=== PATIENT | male | born 1965 | race African-American/Black ===

== ENCOUNTER 2016-12-21 11:08 | Inpatient (IN) | payer OTHER ==
[~2016-12-21] VITALS: Ht 165.1 cm; Wt 76.3 kg
[~2016-12-21 11:08] MED LIST: Augmentin PO; FLEXERIL10 MG PO; GABAPENTIN400 MG PO; HYDROCODON-ACE1 EAC7 PO; METHADONE10 MG PO; MOBIC15 MG PO; NAPROXEN500 MG PO; OXYCODONE HCL20 M1 PO; PREDNISONE20 MG PO; VICODIN ES 71 TABLET PO; VOLTAREN75 MG PO; predniSONE PO
[2016-12-21 13:23] LABS: HEMATOCRIT 46.1 % (38.0-50.0); MCHC 33.6 G/DL (30.0-36.0); MCV 95.1 FL (86-99); RBC DIS.WIDTH-CV 11.2 % (11.8-14.6); RBC DIS.WIDTH-SD 39.6 % (39-53); RED BLOOD COUNT 4.85 M/uL (4.00-5.50)
[2016-12-21 13:34] LABS: CHLORIDE 102 mEq/L (99-109); POTASSIUM 4.5 mEq/L (3.7-5.4); SODIUM 138 mEq/L (136-147)
[2016-12-21 13:35] LABS: GLUCOSE 94 mg/dL (70-99)
[2016-12-21 13:37] LABS: ANION GAP 11 MEQ/L (2-14)
[2016-12-21 13:39] LABS: GFR ESTIMATE (CALCULATED) > 59 mL/min/
[2016-12-21 13:40] LABS: UREA NITROGEN (BUN) 7 mg/dL (9-23)
[2016-12-21] MEDS ORDERED: AUGMENTIN875 MG PO (13:57)
[2016-12-21] MEDS ORDERED: BENZONATATE100 MG PO (13:58)
[2016-12-21 14:14] LABS: PLATELET COUNT 275 K/uL (156-360)
[2016-12-21 14:15] LABS: TROP-I INTERPRETATION NEGATIVE; TROPONIN-I < 0.01 ng/mL (0.0-0.30)
[2016-12-21] MEDS ORDERED: PREDNISONE50 MG PO (15:05)
[2016-12-21 17:01] LABS: D-DIMER ELISA < 150.00 ng/mLDDU (<230)
[2016-12-21 18:22] VITALS: BP 142/70
[2016-12-21 19:39] LABS: TROP-I INTERPRETATION NEGATIVE; TROPONIN-I < 0.01 ng/mL (0.0-0.30)
[2016-12-21 22:00] LABS: INFLUENZA A VIRAL ANTIGEN NEGATIVE; INFLUENZA B VIRAL ANTIGEN NEGATIVE
[2016-12-22 00:09] VITALS: BP 126/71
[2016-12-22 01:31] LABS: TROP-I INTERPRETATION NEGATIVE; TROPONIN-I < 0.01 ng/mL (0.0-0.30)
[2016-12-22 04:14] VITALS: BP 103/51
[2016-12-22 07:08] LABS: HEMATOCRIT 40.7 % (38.0-50.0); MCH 32.9 PG (29.0-34.0); MCHC 34.6 G/DL (30.0-36.0); MCV 95.1 FL (86-99); RBC DIS.WIDTH-CV 11.3 % (11.8-14.6); RBC DIS.WIDTH-SD 39.4 % (39-53); RED BLOOD COUNT 4.28 M/uL (4.00-5.50)
[2016-12-22 07:23] LABS: ALKALINE PHOSPHATASE 79 IU/L (3-129); ANION GAP 11 MEQ/L (2-14); CHLORIDE 101 MEQ/L (99-109); GFR ESTIMATE (CALCULATED) > 59 mL/min/; SAMPLE HEMOLYSIS CHECK 0; SAMPLE ICTERIC CHECK 0; SAMPLE LIPEMIA CHECK 0; SODIUM 137 MEQ/L (136-147); TOTAL BILIRUBIN 0.6 MG/DL (0.0-1.0); UREA NITROGEN (BUN) 9 mg/dL (9-23)
[2016-12-22 07:24] LABS: GLUCOSE 186 mg/dL (70-99)
[2016-12-22 07:40] LABS: MEAN PLAT.VOLUME 10.6 uM^3 (9.0-12.4); PLAT.SUFFICIENCY ADEQUATE; PLATELET COUNT 237 K/uL (156-360)
[2016-12-22 07:43] VITALS: BP 145/60
[2016-12-22 12:04] VITALS: BP 145/70
[2016-12-22] MEDS ORDERED: VENTOLIN HFA18 GM IH (12:43)
[2016-12-22 16:11] VITALS: BP 123/62
[2016-12-22 19:26] VITALS: BP 150/61
[2016-12-23] VITALS: BP 126/58
[2016-12-23 04:04] VITALS: BP 107/52
[2016-12-23 06:29] LABS: HEMATOCRIT 41.1 % (38.0-50.0); MCH 31.8 PG (29.0-34.0); MCHC 33.3 G/DL (30.0-36.0); MCV 95.4 FL (86-99); MEAN PLAT.VOLUME 11.1 uM^3 (9.0-12.4); PLATELET COUNT 242 K/uL (156-360); RBC DIS.WIDTH-CV 11.4 % (11.8-14.6); RBC DIS.WIDTH-SD 40.3 % (39-53); RED BLOOD COUNT 4.31 M/uL (4.00-5.50); WHITE BLOOD COUNT 24.5 K/uL (4.1-10.2)
[2016-12-23 07:06] LABS: ANION GAP 9 MEQ/L (2-14); CHLORIDE 100 MEQ/L (99-109); GFR ESTIMATE (CALCULATED) > 59 mL/min/; MAGNESIUM 2.3 mg/dl (1.3-2.7); POTASSIUM 4.4 MEQ/L (3.7-5.4); SAMPLE HEMOLYSIS CHECK 0; SAMPLE ICTERIC CHECK 0; SAMPLE LIPEMIA CHECK 0; SODIUM 139 MEQ/L (136-147); UREA NITROGEN (BUN) 15 mg/dL (9-23)
[2016-12-23 07:08] LABS: GLUCOSE 98 mg/dL (70-99)
[2016-12-23 07:24] VITALS: BP 121/61
[2016-12-23 07:25] LABS: EOSINOPHIL (%) 0.2 % (0-5); EOSINOPHIL COUNT 0.1 K/uL (0-0.3); IMMATURE GRANULOCYTE (%) 0.8 % (0.0-0.7); IMMATURE GRANULOCYTE COUNT 0.2 K/uL; INSTRUMENT ABS NEUTROPHIL CT 17.9 K/uL; MONOCYTE (%) 5.5 % (3-12); MONOCYTE COUNT 1.4 K/uL (0-0.8); NEUTROPHIL (%) 73.1 % (45-76); NEUTROPHIL COUNT 17.9 K/uL (1.8-6.4)
[2016-12-23 08:04] VITALS: BP 93/59
[2016-12-23 11:24] VITALS: BP 118/67
[2016-12-23] MEDS ORDERED: PREDNISONE10 MG PO (13:34)
== END 2016-12-23 15:17 | disposition home or self-care (01) | DRG 192 ==
LOC: EME 11:08 → EDOF 16:36 → 5SOUTH 16:36 → ENRESERV 16:51 → 5SOUTH 17:50
PROVIDERS: Internal Medicine
DX: J44.1 Chronic obstructive pulmonary disease with (acute) exacerbation (principal); J44.0 Chronic obstructive pulmonary disease with (acute) lower respiratory infection; J20.9 Acute bronchitis, unspecified; D72.829 Elevated white blood cell count, unspecified; T38.0X5A Adverse effect of glucocorticoids and synthetic analogues, initial encounter; F17.200 Nicotine dependence, unspecified, uncomplicated; Z71.6 Tobacco abuse counseling; K21.9 Gastro-esophageal reflux disease without esophagitis; M47.9 Spondylosis, unspecified; G89.29 Other chronic pain; Z87.01 Personal history of pneumonia (recurrent); Z79.1 Long term (current) use of non-steroidal anti-inflammatories (NSAID); Z79.891 Long term (current) use of opiate analgesic; Z82.49 Family history of ischemic heart disease and other diseases of the circulatory system
CPT/HCPCS: 71010; 71020; 80048; 80053; 83735; 84484; 85025; 85027; 85379; 87502; 87651 90; 93005; 94640; 94640 76; 94799; 99202; 99281; 99285; J1644; J2930; J7512

== ENCOUNTER 2017-12-01 20:11 | Emergency (ER) | payer OTHER ==
[~2017-12-01] VITALS: Ht 165.1 cm; Wt 75.4 kg
[~2017-12-01 20:11] MED LIST changes: +AUGMENTIN875 MG PO; +BENZONATATE100 MG PO; +PREDNISONE10 MG PO; +PREDNISONE50 MG PO; +VENTOLIN HFA18 GM IH
[2017-12-01] MEDS ORDERED: ZYRTEC10 M3 PO (21:15)
[2017-12-01] MEDS ORDERED: BACTROBAN OINTM22 GM TP (21:15)
[2017-12-01 21:47] VITALS: BP 126/73
== END 2017-12-01 21:47 | disposition home or self-care (01) ==
LOC: EME 20:11
DX: S70.361A Insect bite (nonvenomous), right thigh, initial encounter (principal); W57.XXXA Bitten or stung by nonvenomous insect and other nonvenomous arthropods, initial encounter; F17.200 Nicotine dependence, unspecified, uncomplicated
CPT/HCPCS: 99281; 99283